=== PATIENT | female | born 1965 | race Caucasian/White ===

== ENCOUNTER 2023-04-10 11:10 | Outpatient (REF) | payer SELFPAY | END 2023-04-10 11:11 | disposition home or self-care (01) | LOC: CF 11:10 | DX: Z13.89 Encounter for screening for other disorder (principal) ==

== ENCOUNTER 2023-04-11 10:52 | Outpatient (AMB) | payer MEDICAID, SELFPAY ==
--- NOTE | 2023-04-11 10:57 | A.SPINEOV_ITS ---
Intake Intake Visit Reasons: Lumbar radiculopathy Intake Note: Ms. Costa is here today c/o neck and low back pain. 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 HPI: This 58-year-old female start to develop posterior neck pain radiating to her shoulder and shoulder blade proximally 1 year ago. The pain or discomfort can go into her arm and hands. It feels like she is having electric shocks down her right arm. She also noticed a decreased automobile service advisor on the right side. Driving increases the discomfort and numbness in her hand. She drops objects with her right hand. She broke her left wrist 5 years ago and she thinks that subsequently she developed weakness of her left hand. An EMG was normal according to the patient. PMH: Lumbar fusion, hysterectomy, hypothyroidism, colitis, asbestosis Medications: Levothyroxine, ibuprofen, famotidine, loperamide Allergies: Morphine Social history: Nonsmoker Physical Exam: Pleasant female. Cranial nerves are intact. There is a grade 4/5 weakness of the automobile service advisor of the right hand. No objective sensory deficits. Reflexes are high but symmetrically. No pathological reflexes. Gait is undisturbed. Tinel is negative Radiological Studies: MRI done at [facility] but uploaded in our system on 08/24/2022 shows a bone spur compressing the right C6 nerve root. Oth erwise there are no significant abnormalities. Impression/Plan: This 58-year-old female is most likely suffering from a C6 radiculopathy with mild weakness. The symptoms are currently not severe enough to undergo a procedure. She will return to my office if the symptoms are progressive. We briefly discussed an anterior diskectomy and fusion. Thank you for allowing me to participate in your patients care. total time spent was 50 minutes in counseling ,coordination of plan, personal review of imaging, surgical decision making and subsequent plan Masoud Randall MD, PhD Sp[facility] Trained Neurosurgeon Director, [facility] Coding Level of Care Code New Pt Level 4 (23012) Diagnoses Cervical radiculopathy at C6 M54.12
== END 2023-04-11 11:53 | disposition home or self-care (01) ==
PROVIDERS: PCP Internal Medicine; Referring Provider Physician Assistant Medical; Visit Provider Neurological Surgery
DX: M54.12 Radiculopathy, cervical region (principal)
CPT/HCPCS: 99204

== ENCOUNTER → 2023-04-11 10:52 | Outpatient (BNVA) | payer MEDICAID, SELFPAY | PROVIDERS: PCP Internal Medicine; Visit Provider Neurological Surgery | DX: M54.12 Radiculopathy, cervical region (principal) | CPT/HCPCS: 99202 ==